=== PATIENT | male | born 1990 | race Caucasian/White ===

== ENCOUNTER 2016-10-01 14:27 | Emergency (ER) | payer MEDICAID ==
[~2016-10-01] VITALS: Ht 180.3 cm; Wt 81.6 kg
[2016-10-01 14:32] VITALS: BP_SYST 152
[2016-10-01] MEDS ORDERED: LIDOCAINE 1% 10 MG/ML, 20 ML MDV INJ ONE (16:30)
[2016-10-01] MEDS ORDERED: IBUPROFEN 800 MG TABLET PO ONE (16:30)
[2016-10-01] MEDS ORDERED: cefTRIAXone 1 GM VIAL IM ONE (16:30)
[2016-10-01 16:52] VITALS: BP_SYST 117
== END 2016-10-01 16:52 | disposition home or self-care (01) ==
LOC: SED 14:27
DX: K04.7 Periapical abscess without sinus (principal)
CPT/HCPCS: 96372; 99283; J0696; J2001